=== PATIENT | male | born 1985 | race Caucasian/White ===

== ENCOUNTER 2018-07-15 12:48 | Emergency (ER) | payer BC, OTHER ==
[2018-07-15 13:20] LABS: #Basophils 0.1 thou/uL (0.0-0.2); #Eosinphils 0.1 thou/uL (0.0-0.7); #Monocytes 0.6 thou/uL (0.11-0.59); #Neutrophils 5.4 thou/uL (1.40-6.50); %Basophils 1.3 % (0.0-1.0); %Eosinophils 0.7 % (0.0-10.0); %Monocytes 6.3 % (0.0-10.0); %Neutrophils 58.7 % (42.0-75.0); Hemoglobin 14.9 g/dL (14.0-18.0); Mean Corpuscular HGB CONC 35.3 g/dL (32.0-36.0); Mean Corpuscular Hemoglobin 30.8 pg (27.0-31.0); Mean Platelet Volume 9.6 fL (7.4-10.4); Platelet Count 147 thou/uL (130-400); RBC Distribution Width 11.1 % (11.5-14.5); Red Blood Cell (RBC) Count 4.85 mill/uL (4.70-6.10); White Blood Cell (WBC) Count 9.1 thou/uL (4.8-10.8)
--- NOTE | 2018-07-15 13:28 | RAD ---
AP VIEW CHEST: Date: 07/15/18 HISTORY: Chest pain. FINDINGS: AP view of chest obtained and demonstrates the lungs to be well aerated. No evidence of active intrat horacic disease seen. No evidence of effusions, pneumonia, or pneumothorax seen. IMPRESSION: Unremarkable AP view chest. POS: [facility]
[2018-07-15 13:36] LABS: CK (CPK) 125 U/L (30-200); Lipase 23 U/L (8-78)
[2018-07-15 13:38] LABS: CKMB 0.9 ng/mL (0-6.6); Troponin I 0.012 ng/mL (< 0.028)
[2018-07-15 14:04] LABS: ALT (SGPT) 25 U/L (8-55); AST (SGOT) 18 U/L (5-34); Albumin 4.7 g/dL (3.5-5.0); Alkaline Phosphatase 54 U/L (40-150); Anion Gap 13 mmol/L (10-20); BUN (Urea Nitrogen) 15 mg/dL (8.9-20.6); Bilirubin, Total 0.6 mg/dL (0.2-1.2); Calc. Creatinine Clearance 0 mL/min (70-130); Calcium 9.5 mg/dL (7.8-10.44); Carbon Dioxide 23 mmol/L (22-29); Chloride 107 mmol/L (98-107); Estimated GFR-MDRD 67; Globulin 2.3 g/dL (2.4-3.5); Glucose 102 mg/dL (70-105); Potassium 4.1 mmol/L (3.5-5.1); Sodium 139 mmol/L (136-145)
[2018-07-15 16:37] LABS: Troponin I Less than 0.010 ng/mL (< 0.028)
== END 2018-07-15 16:47 | disposition home or self-care (01) ==
LOC: SCSER 12:48
DX: R07.9 Chest pain, unspecified (principal)
CPT/HCPCS: 36415; 71045; 80053; 82550; 82553; 83690; 84484; 85025; 85379; 93005; 96360